=== PATIENT | male | born 1980 | race Caucasian/White ===

== ENCOUNTER 2016-09-08 15:33 | Emergency (ER) | payer OTHER ==
[~2016-09-08] VITALS: Ht 182.9 cm; Wt 63.5 kg
[2016-09-08] MEDS ORDERED: VENTOLIN HFA INH8 GM INH (15:41)
[2016-09-08] MEDS ORDERED: VENTOLIN HFA 1818 GM INH (16:01)
[2016-09-08 16:08] VITALS: BP 150/93
== END 2016-09-08 16:15 | disposition home or self-care (01) ==
LOC: ER 15:33
DX: J45.901 Unspecified asthma with (acute) exacerbation (principal); F17.210 Nicotine dependence, cigarettes, uncomplicated; F10.99 Alcohol use, unspecified with unspecified alcohol-induced disorder; Z88.8 Allergy status to other drugs, medicaments and biological substances